=== PATIENT | female | born 1930 | race Hispanic/Latino ===

== ENCOUNTER 2018-07-10 11:16 | Outpatient (CLI) | payer MEDICARE ==
--- NOTE | 2018-07-10 12:47 | XRay Report ---
XRAY RIGHT KNEE 3 THREE VIEWS: 07/10/18 11:16:00 CLINICAL: Right leg pain. FINDINGS: Mild osteopenia. Near-complete loss of the lateral joint space and a mild varus deformity. Mild medial joint space narrowing and moderate sized medial osteophytes. Smaller lateral osteophytes. Patellofemoral joint arthritis with small osteophytes and narrowing of joint space. No fracture or dislocation. No joint effusion.Calcification of the femoral artery and popliteal artery. No soft tissue air or edema. 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
--- NOTE | 2018-07-10 12:50 | XRay Report ---
XRAY RIGHT TIBIA AND FIBULA TWO VIEWS: 07/10/18 11:16:00 CLINICAL: Leg pain. FINDINGS: Mild osteopenia. No acute fracture or dislocation. Prominent long periosteal new bone formation along the lateral aspect of the fibula but no fracture lines identified. Normal alignment at the knee and at the ankle. No knee joint effusion. Normal soft tissues.No soft tissue air or foreign body. IMPRESSION: Periosteal new bone place along the lateral fibula suggests a healed fracture of uncertain age.
== END 2018-07-10 11:17 | disposition home or self-care (01) ==
LOC: SPVIMAG 11:16
PROVIDERS: ATTEND Internal Medicine
DX: M17.11 Unilateral primary osteoarthritis, right knee (principal); M25.761 Osteophyte, right knee